=== PATIENT | male | born 1960 | race Caucasian/White ===

== ENCOUNTER 2017-12-07 22:07 | Inpatient (IN) ==
[2017-12-07] MEDS ORDERED: Nitroglycerin Drip Premix 50 MG/250 ML BOTTLE IV.CONT PRN (22:32)
[2017-12-07] MEDS ORDERED: Heparin 10,000 UNITS/10 ML Vial (for IV use) IV.PUSH STA (22:32)
[2017-12-07] MEDS ORDERED: Morphine Inj 4 MG/ML Vial IV.PUSH ONE ×2 (22:39→23:36)
[2017-12-07] MEDS ORDERED: Sod Chloride 0.9% Inj 1,000 ML IV.SIG SCH (22:45)
--- NOTE | 2017-12-07 22:45 | ED ---
HPI General Chief Complaint: Chest Pain Stated Complaint: chest pain Time Seen by Provider: 12/07/17 22:39 Source: patient Mode of arrival: ambulatory Limitations: no limitations History of Present Illness MD complaint: Reports chest pain STEMI Alert: Yes Onset (ago): hour(s) (2) Time: 08:30 Duration: constant Onset: during rest Pain location: Reports substernal Severity: severe Severity scale (1-10): 10 Quality: Reports tightness Pain radiation: Reports jaw/teeth Relieving factors: nothing Exacerbating factors: nothing Context: Reports other (History of tobacco abuse) Associated symptoms: Denies nausea, diaphoresis, syncope, fever, cough and leg swelling Treatments prior to arrival chest pain: Reports none Related Data Home Medications Medication Instructions Recorded Confirmed No Known Home Medications 12/07/17 12/07/17 Previous Rx's Medication Instructions Recorded aspirin 81 mg PO DAILY #30 tab 12/09/17 atorvastatin 80 mg PO DAILY #30 tab 12/09/17 carvedilol [Coreg] 3.125 mg PO BID #60 tab 12/09/17 ticagrelor [Brilinta] 90 mg PO BID #60 tab 12/09/17 Allergies Allergy/AdvReac Type Severity Reaction Status Date / Time Penicillins Allergy Hives Verified 12/07/17 22:15 Review of Systems ROS: all other systems reviewed are negative [facility] Medical History Medical History Patient denies medical problems (Acute) Family History Family History Father Heart disease Mother Healthy female adult Social History Social History Substance History: No History of Abuse Second Hand Smoke Exposure: Yes Smoking Status: Current every day smoker Tobacco Type: Cigarettes How Often Do You Have a Drink Containing Alcohol: 2 to 3 times a week Recent Travel in [facility] within the Last 8 Weeks: Yes Recent Out of Country Travel within the Last 8 Weeks: No Immunization History Tetanus Immunization: Unsure Exam Const General: cooperative and healthy appearing Orientation: alert, awake and oriented x3 HENMT Head: normal to inspection, normocephalic and atraumatic Eyes General: appearance normal, both eyes and all related structures Conjunctivae: conjunctivae normal Sclera: sclerae normal EOM: EOM intact bilaterally Neck Neck: normal visual inspection and full ROM Chest Chest: normal inspection of the chest Resp Effort & Inspection: normal respiratory effort and able to speak in complete sentences Auscultation: clear to auscultation bilaterally Cardio Rate: regular rate Rhythm: regular rhythm Heart Sounds: S1 normal and S2 normal GI Inspection: normal to inspection Palpation: soft Back/Spine/Pelvis Cervical Spine: cervical ROM normal Thoracic/Lumbar Spine: thoraco-lumbar ROM normal Skin General: no rashes or lesions noted, turgor normal and dry skin Neuro General: alert, awake, oriented x3, moves all extremities and CN's II-XI intact bilaterally Extrem General: normal to inspection, full ROM and no pedal edema Psych Appearance: grossly normal Mental Status: mental status grossly normal Speech and Movement: speech and movement normal Mood: anxious mood Affect: anxious affect Attitude: cooperative Thought Process: normal Thought Content: normal Judgment: judgment good Course Consultations Consultation #1: Dr. Lofton has reviewed this patient's EKG. He states that it is not a STEMI. Time: 22:44 Consultation #2: Patient received during sign-out from Dr. Mejia. 57yM presenting with chest pain, found to have abnormal initial EKG with 2+ mm elevations in I and aVL, depressions in II, III, and aVF with 10/10 pain. The case was discussed with Dr. Lofton of interventional radiology, who did not feel the patient fit STEMI criteria. He was started on heparin and nitro drips prior to my arrival but still complains of 8/10 chest pain. A repeat EKG shows improvement in elevations in I and aVL/ depressions in II, III, and aVF but they are still persistently about 1 mm in the setting of continued pain. The patient's initial troponin is 0.26. I again spoke with Dr. Lofton, and as the patient has risk factors (smoking history, "diet-controlled diabetes"), family history (father with CAD in his 60s), and persistent pain despite aggressive medical management, he will bring the patient to the biology laboratory assistant for high-risk NSTEMI. Time: 23:40 Initial Documented Vital Signs Temperature 97.6 F 12/07/17 22:15 Pulse Rate 72 12/07/17 22:15 Respiratory Rate 15 12/07/17 22:15 Blood Pressure 234/102 H 12/07/17 22:15 Pulse Oximetry 100 12/07/17 22:15 Last Documented Vital Signs Temperature 98.3 F 12/09/17 08:00 Pulse Rate 60 12/09/17 12:30 Respiratory Rate 20 12/09/17 08:00 Blood Pressure 145/88 H 12/09/17 08:00 Pulse Oximetry 99 12/09/17 20:00 Critical Care Time Critical Care Time: Yes Total Critical Care Time: 30 Attestation: Time to perform other separately billable procedures was not included in the critical care time. My time did not include minutes spent treating any other patients simultaneously or on activities that did not directly contribute to the patient's treatment. The services I provided to this patient were to treat and/or prevent clinically significant deterioration due to chest pain, rule out ACS. I provided critical care services requiring my management, as noted below: Chart data review, documentation time, medication orders and management, vital sign assessments/reviewing monitor data, ordering and reviewing lab tests, ordering and interpreting/reviewing x-rays and diagnostic studies, care of the patient and discussion of the patient with the admitting physicians Medical Decision Making MDM Narrative Medical decision making narrative: This patient presents with chest pain for the last 2 hours. He states that he has been here for the last 2 weeks looking for a house. He plans to relocate here for senior living. He states that he bought a house today and was sitting in the hot tub this evening when he developed diffuse chest pain. The chest pain did not go away so he presented to us for further evaluation and treatment. Medical Screen Exam Complete: Yes Emergency Medical Condition: Yes Differential Diagnosis Differential Diagnosis: Differential diagnosis of chest pain includes but is not limited to musculoskeletal pain, pulmonary embolism, acute coronary syndrome , pneumonia, pleurisy Lab Data Result diagrams: 12/09/17 05:41 12/09/17 05:41 Lab Results 12/07/17 12/07/17 12/07/17 Range/Units 22:39 22:39 22:39 WBC 12.0 H (4.0-11.0) th/mm3 RBC 5.24 (4.50-5.90) mil/mm3 Hgb 16.4 (13.0-17.0) gm/dL POC Hgb (Calc) 16.3 (13.0-17.0) g/dL Hct 48.3 (39.0-51.0) % POC Hct 48.0 (39-51.0) % MCV 92.1 (80.0-100.0) fL MCH 31.3 (27.0-34.0) pg MCHC 34.0 (32.0-36.0) % RDW 14.4 (11.6-17.2) % Plt Count 151 (150-450) th/mm3 MPV 9.2 (7.0-11.0) fL Neut % (Auto) 75.4 H (16.0-70.0) % Lymph % (Auto) 16.5 (9.0-44.0) % [place] % (Auto) 5.7 (0.0-8.0) % Eos % (Auto) 2.1 (0.0-4.0) % Baso % (Auto) 0.3 (0.0-2.0) % Neut # (Auto) 9.1 H (1.8-7.7) th/mm3 Lymph # (Auto) 2.0 (1.0-4.8) th/mm3 [place] # (Auto) 0.7 (0.0-0.9) th/mm3 Eos # (Auto) 0.2 (0.0-0.4) th/mm3 Baso # (Auto) 0.0 (0.0-0.2) th/mm3 WBC Differential . Differential Comment Auto diff final PT 10.0 (9.8-11.6) sec INR 1.0 Ratio APTT 29.7 (24.3-30.1) sec POC Sodium 136 L (137-144) mmol/L Sodium (136-145) meq/L POC Potassium 3.5 L (3.6-5.0) mmol/L Potassium (3.5-5.1) meq/L POC Chloride 99 L (102-111) mmol/L Chloride (98-107) meq/L Carbon Dioxide (21.0-32.0) meq/L Anion Gap (5-15) meq/L POC BUN 11 (5-21) mg/dL BUN (7-18) mg/dL Creatinine (0.60-1.30) mg/dL POC Creatinine 1.0 (0.6-1.3) mg/dL Estimated GFR (>89) mL/min POC Glucose 111 H (68-110) mg/dL Random Glucose (74-106) mg/dL Hemoglobin A1c (4.3-6.0) % Calcium 8.3 L (8.5-10.1) mg/dL Prot Corrected Calcium (8.5-10.1) mg/dL Magnesium 1.9 (1.5-2.5) mg/dL Total Bilirubin (0.2-1.0) mg/dL AST (15-37) U/L ALT (12-78) U/L Alkaline Phosphatase (45-117) U/L Total Creatine Kinase 95 (39-308) U/L Troponin I 0.28 H (0.02-0.05) ng/mL B-Natriuretic Peptide (0-100) pg/mL Total Protein (6.4-8.2) g/dL Albumin (3.4-5.0) g/dL Triglycerides (42-150) mg/dL Cholesterol (120-200) mg/dL LDL Cholesterol, Calc (0-99) mg/dL HDL Cholesterol (40.0-60.0) mg/dL Cholesterol/HDL Ratio Ratio 12/07/17 12/08/17 12/08/17 Range/Units 22:39 05:45 05:45 WBC (4.0-11.0) th/mm3 RBC (4.50-5.90) mil/mm3 Hgb (13.0-17.0) gm/dL POC Hgb (Calc) (13.0-17.0) g/dL Hct (39.0-51.0) % POC Hct (39-51.0) % MCV (80.0-100.0) fL MCH (27.0-34.0) pg MCHC (32.0-36.0) % RDW (11.6-17.2) % Plt Count (150-450) th/mm3 MPV (7.0-11.0) fL Neut % (Auto) (16.0-70.0) % Lymph % (Auto) (9.0-44.0) % [place] % (Auto) (0.0-8.0) % Eos % (Auto) (0.0-4.0) % Baso % (Auto) (0.0-2.0) % Neut # (Auto) (1.8-7.7) th/mm3 Lymph # (Auto) (1.0-4.8) th/mm3 [place] # (Auto) (0.0-0.9) th/mm3 Eos # (Auto) (0.0-0.4) th/mm3 Baso # (Auto) (0.0-0.2) th/mm3 WBC Differential Differential Comment PT (9.8-11.6) sec INR Ratio APTT (24.3-30.1) sec POC Sodium (137-144) mmol/L Sodium 142 (136-145) meq/L POC Potassium (3.6-5.0) mmol/L Potassium 3.7 (3.5-5.1) meq/L POC Chloride (102-111) mmol/L Chloride 110 H (98-107) meq/L Carbon Dioxide 23.2 (21.0-32.0) meq/L Anion Gap 9 (5-15) meq/L POC BUN (5-21) mg/dL BUN 9 (7-18) mg/dL Creatinine 0.58 L (0.60-1.30) mg/dL POC Creatinine (0.6-1.3) mg/dL Estimated GFR Greater than 89 (>89) mL/min POC Glucose (68-110) mg/dL Random Glucose 104 (74-106) mg/dL Hemoglobin A1c 5.7 (4.3-6.0) % Calcium 7.4 L* D (8.5-10.1) mg/dL Prot Corrected Calcium 7.9 L (8.5-10.1) mg/dL Magnesium (1.5-2.5) mg/dL Total Bilirubin (0.2-1.0) mg/dL AST (15-37) U/L ALT (12-78) U/L Alkaline Phosphatase (45-117) U/L Total Creatine Kinase (39-308) U/L Troponin I Greater than 40.00 H* (0.02-0.05) ng/mL B-Natriuretic Peptide 24 (0-100) pg/mL Total Protein 6.2 L (6.4-8.2) g/dL Albumin (3.4-5.0) g/dL Triglycerides 184 H (42-150) mg/dL Cholesterol 174 (120-200) mg/dL LDL Cholesterol, Calc 92 (0-99) mg/dL HDL Cholesterol 44.8 (40.0-60.0) mg/dL Cholesterol/HDL Ratio 3.88 Ratio 12/08/17 12/08/17 12/08/17 Range/Units 05:45 07:49 12:54 WBC 11.2 H (4.0-11.0) th/mm3 RBC 4.71 (4.50-5.90) mil/mm3 Hgb 14.8 (13.0-17.0) gm/dL POC Hgb (Calc) (13.0-17.0) g/dL Hct 43.7 (39.0-51.0) % POC Hct (39-51.0) % MCV 92.8 (80.0-100.0) fL MCH 31.3 (27.0-34.0) pg MCHC 33.7 (32.0-36.0) % RDW 14.3 (11.6-17.2) % Plt Count 131 L (150-450) th/mm3 MPV 9.5 (7.0-11.0) fL Neut % (Auto) 82.1 H (16.0-70.0) % Lymph % (Auto) 11.7 (9.0-44.0) % [place] % (Auto) 5.2 (0.0-8.0) % Eos % (Auto) 0.8 (0.0-4.0) % Baso % (Auto) 0.2 (0.0-2.0) % Neut # (Auto) 9.2 H (1.8-7.7) th/mm3 Lymph # (Auto) 1.3 (1.0-4.8) th/mm3 [place] # (Auto) 0.6 (0.0-0.9) th/mm3 Eos # (Auto) 0.1 (0.0-0.4) th/mm3 Baso # (Auto) 0.0 (0.0-0.2) th/mm3 WBC Differential . Differential Comment Auto diff final PT (9.8-11.6) sec INR Ratio APTT (24.3-30.1) sec POC Sodium (137-144) mmol/L Sodium (136-145) meq/L POC Potassium (3.6-5.0) mmol/L Potassium (3.5-5.1) meq/L POC Chloride (102-111) mmol/L Chloride (98-107) meq/L Carbon Dioxide (21.0-32.0) meq/L Anion Gap (5-15) meq/L POC BUN (5-21) mg/dL BUN (7-18) mg/dL Creatinine (0.60-1.30) mg/dL POC Creatinine (0.6-1.3) mg/dL Estimated GFR (>89) mL/min POC Glucose 113 H 188 H (68-110) mg/dL Random Glucose (74-106) mg/dL Hemoglobin A1c (4.3-6.0) % Calcium (8.5-10.1) mg/dL Prot Corrected Calcium (8.5-10.1) mg/dL Magnesium (1.5-2.5) mg/dL Total Bilirubin (0.2-1.0) mg/dL AST (15-37) U/L ALT (12-78) U/L Alkaline Phosphatase (45-117) U/L Total Creatine Kinase (39-308) U/L Troponin I (0.02-0.05) ng/mL B-Natriuretic Peptide (0-100) pg/mL Total Protein (6.4-8.2) g/dL Albumin (3.4-5.0) g/dL Triglycerides (42-150) mg/dL Cholesterol (120-200) mg/dL LDL Cholesterol, Calc (0-99) mg/dL HDL Cholesterol (40.0-60.0) mg/dL Cholesterol/HDL Ratio Ratio 12/08/17 12/08/17 12/09/17 Range/Units 17:10 20:25 05:41 WBC 9.4 (4.0-11.0) th/mm3 RBC 4.86 (4.50-5.90) mil/mm3 Hgb 15.5 (13.0-17.0) gm/dL POC Hgb (Calc) (13.0-17.0) g/dL Hct 45.2 (39.0-51.0) % POC Hct (39-51.0) % MCV 93.0 (80.0-100.0) fL MCH 31.9 (27.0-34.0) pg MCHC 34.3 (32.0-36.0) % RDW 14.3 (11.6-17.2) % Plt Count 142 L (150-450) th/mm3 MPV 9.6 (7.0-11.0) fL Neut % (Auto) 74.1 H (16.0-70.0) % Lymph % (Auto) 17.0 (9.0-44.0) % [place] % (Auto) 6.6 (0.0-8.0) % Eos % (Auto) 2.0 (0.0-4.0) % Baso % (Auto) 0.3 (0.0-2.0) % Neut # (Auto) 7.0 (1.8-7.7) th/mm3 Lymph # (Auto) 1.6 (1.0-4.8) th/mm3 [place] # (Auto) 0.6 (0.0-0.9) th/mm3 Eos # (Auto) 0.2 (0.0-0.4) th/mm3 Baso # (Auto) 0.0 (0.0-0.2) th/mm3 WBC Differential . Differential Comment Auto diff final PT (9.8-11.6) sec INR Ratio APTT (24.3-30.1) sec POC Sodium (137-144) mmol/L Sodium (136-145) meq/L POC Potassium (3.6-5.0) mmol/L Potassium (3.5-5.1) meq/L POC Chloride (102-111) mmol/L Chloride (98-107) meq/L Carbon Dioxide (21.0-32.0) meq/L Anion Gap (5-15) meq/L POC BUN (5-21) mg/dL BUN (7-18) mg/dL Creatinine (0.60-1.30) mg/dL POC Creatinine (0.6-1.3) mg/dL Estimated GFR (>89) mL/min POC Glucose 121 H 136 H (68-110) mg/dL Random Glucose (74-106) mg/dL Hemoglobin A1c (4.3-6.0) % Calcium (8.5-10.1) mg/dL Prot Corrected Calcium (8.5-10.1) mg/dL Magnesium (1.5-2.5) mg/dL Total Bilirubin (0.2-1.0) mg/dL AST (15-37) U/L ALT (12-78) U/L Alkaline Phosphatase (45-117) U/L Total Creatine Kinase (39-308) U/L Troponin I (0.02-0.05) ng/mL B-Natriuretic Peptide (0-100) pg/mL Total Protein (6.4-8.2) g/dL Albumin (3.4-5.0) g/dL Triglycerides (42-150) mg/dL Cholesterol (120-200) mg/dL LDL Cholesterol, Calc (0-99) mg/dL HDL Cholesterol (40.0-60.0) mg/dL Cholesterol/HDL Ratio Ratio 12/09/17 12/09/17 Range/Units 05:41 07:20 WBC (4.0-11.0) th/mm3 RBC (4.50-5.90) mil/mm3 Hgb (13.0-17.0) gm/dL POC Hgb (Calc) (13.0-17.0) g/dL Hct (39.0-51.0) % POC Hct (39-51.0) % MCV (80.0-100.0) fL MCH (27.0-34.0) pg MCHC (32.0-36.0) % RDW (11.6-17.2) % Plt Count (150-450) th/mm3 MPV (7.0-11.0) fL Neut % (Auto) (16.0-70.0) % Lymph % (Auto) (9.0-44.0) % [place] % (Auto) (0.0-8.0) % Eos % (Auto) (0.0-4.0) % Baso % (Auto) (0.0-2.0) % Neut # (Auto) (1.8-7.7) th/mm3 Lymph # (Auto) (1.0-4.8) th/mm3 [place] # (Auto) (0.0-0.9) th/mm3 Eos # (Auto) (0.0-0.4) th/mm3 Baso # (Auto) (0.0-0.2) th/mm3 WBC Differential Differential Comment PT (9.8-11.6) sec INR Ratio APTT (24.3-30.1) sec POC Sodium (137-144) mmol/L Sodium 142 (136-145) meq/L POC Potassium (3.6-5.0) mmol/L Potassium 3.7 (3.5-5.1) meq/L POC Chloride (102-111) mmol/L Chloride 109 H (98-107) meq/L Carbon Dioxide 25.1 (21.0-32.0) meq/L Anion Gap 8 (5-15) meq/L POC BUN (5-21) mg/dL BUN 9 (7-18) mg/dL Creatinine 0.70 (0.60-1.30) mg/dL POC Creatinine (0.6-1.3) mg/dL Estimated GFR Greater than 89 (>89) mL/min POC Glucose 129 H (68-110) mg/dL Random Glucose 118 H (74-106) mg/dL Hemoglobin A1c (4.3-6.0) % Calcium 8.1 L (8.5-10.1) mg/dL Prot Corrected Calcium (8.5-10.1) mg/dL Magnesium (1.5-2.5) mg/dL Total Bilirubin 1.1 H (0.2-1.0) mg/dL AST 120 H (15-37) U/L ALT 61 (12-78) U/L Alkaline Phosphatase 64 (45-117) U/L Total Creatine Kinase (39-308) U/L Troponin I (0.02-0.05) ng/mL B-Natriuretic Peptide (0-100) pg/mL Total Protein 6.7 (6.4-8.2) g/dL Albumin 3.6 (3.4-5.0) g/dL Triglycerides (42-150) mg/dL Cholesterol (120-200) mg/dL LDL Cholesterol, Calc (0-99) mg/dL HDL Cholesterol (40.0-60.0) mg/dL Cholesterol/HDL Ratio Ratio Imaging Data Radiologist's impression: Chest X-Ray 12/07/17 22:32 CONCLUSION: Minimal basilar atelectasis. No focal infiltrate or effusion. ECG Data EKG Prior to Arrival: No Attestation: I personally reviewed and interpreted this ECG as follows: (EKG shows a sinus rhythm with a rate of 73. He has ST segment elevation in 1 and aVL. He has ST segment depression in 2, 3 and aVF.) Prior ECG tracings: not available for review Discharge Plan Discharge Disposition Patient Disposition: 30 Still Patient Discharge Condition Condition: Good Discharge Order Discharge Orders: Discharge Order (Routine); Ordered 12/09/17 Ordered By: Sharon Dominguez Discharge Details Diagnosis: ACS (acute coronary syndrome) Physicians Team ED Provider: Megan Cosby Primary Care Provider: UNKNOWN, Attending Provider: Sharon Dominguez Status ED Status: Left Department Discharge Information Discharge Date/Time: 12/08/17 01:29
--- NOTE | 2017-12-07 22:56 | XR ---
EXAM DATE: 12/07/2017 10:53 PM EDT AGE/SEX: 57 years / Male INDICATIONS: Chest pain CLINICAL DATA: This is the patient's initial encounter. Patient reports that signs and symptoms have been present for 1 day and indicates a pain score of Nonresponsive. MEDICAL/SURGICAL HISTORY: Non-responsive. Non-responsive. COMPARISON: No prior exams available for comparison. FINDINGS: A single AP view of the chest demonstrates the lungs to be symmetrically aerated without evidence of mass, infiltrate or effusion. Minimal basilar atelectasis. The cardiomediastinal contours are unremar kable. Osseous structures are intact. CONCLUSION: Minimal basilar atelectasis. No focal infiltrate or effusion. Electronically signed by: Cameron Kang MD 12/07/2017 10:54 PM EDT
[2017-12-07 22:59] LABS: Baso % (Auto) 0.3 % (0.0-2.0); Eos # (Auto) 0.2 th/mm3 (0.0-0.4); Eos % (Auto) 2.1 % (0.0-4.0); Hematocrit 48.3 % (39.0-51.0); Hemoglobin 16.4 gm/dL (13.0-17.0); Lymph % (Auto) 16.5 % (9.0-44.0); Mean Corpuscular Hemoglobin 31.3 pg (27.0-34.0); Mean Corpuscular Volume 92.1 fL (80.0-100.0); Mean Platelet Volume 9.2 fL (7.0-11.0); Mono # (Auto) 0.7 th/mm3 (0.0-0.9); Mono % (Auto) 5.7 % (0.0-8.0); Neut # (Auto) 9.1 th/mm3 (1.8-7.7); Neut % (Auto) 75.4 % (16.0-70.0); Platelet Count 151 th/mm3 (150-450); Red Blood Count 5.24 mil/mm3 (4.50-5.90); Red Cell Distribution Width 14.4 % (11.6-17.2)
[2017-12-07 23:19] LABS: Calcium 8.3 mg/dL (8.5-10.1); Magnesium 1.9 mg/dL (1.5-2.5)
[2017-12-07 23:22] LABS: Troponin I 0.28 ng/mL (0.02-0.05)
[2017-12-07 23:40] LABS: Activated Partial Thrombo Time 29.7 sec (24.3-30.1)
[2017-12-08] MEDS ORDERED: Bisacodyl 10 MG Supp RECTAL PRN (00:30)
[2017-12-08] MEDS ORDERED: Heparin/NS PF Inj 1,500 ML ONE (01:03)
[2017-12-08] MEDS ORDERED: fentaNYL Citrate Inj 100 MCG/2 ML Ampul ONE (01:07)
[2017-12-08] MEDS ORDERED: Heparin 10,000 UNITS/10 ML Vial (for IV use) ONE (01:10)
[2017-12-08] MEDS ORDERED: Dextrose 50% in Water 50 ML Vial IV.PUSH PRN (01:55)
--- NOTE | 2017-12-08 01:56 | P.HPIM ---
History of Present Illness Primary Care Physician: UNKNOWN History of Present Illness: 57-year-old male with a history of prediabetes, diet controlled, [id number]-[id number] history of smoking, who presents with acute onset of progressively worsening dull chest pain radiating to jaw, as well as left arm around 4 PM. Patient denies any shortness of breath, nausea, vomiting, lightheadedness, dizziness. Chest pain has persisted despite nitroglycerin. Patient does report history of vague left-sided chest pain upon exertion, however cannot say with certainty how long this has been going on. Inpatient Certification: I certify that the inpatient services were ordered in accordance with Medicare regulations governing the order. This includes certification that hospital inpatient services are reasonable and necessary and in the case of services not specified as inpatient-only under 42 CFR 419.22(n), that they are appropriately provided as inpatient services in accordance to with the 2-midnight benchmark under 43 CFR 412.3(e) Estimated Total Length of Stay (Days): 2 Plans for Post Hospital Care: Home Review of Systems All other systems reviewed negative except as stated in HPI PMFSH - History History Provided By: Patient - Medical History Medical History: Medical History (Last Reviewed 12/08/17 @ 01:51 by Jacob Huynh MD) Patient denies medical problems - Surgical History Surgical History: Surgical History (Last Reviewed 12/08/17 @ 01:51 by Jacob Huynh MD) History of carpal tunnel surgery No history of previous surgery - Family History Family History: Family History (Last Updated 12/08/17 @ 01:51 by Jacob Huynh MD) Father Heart disease Mother Healthy female adult - Tobacco History Tobacco Use In Past 30 Days: Yes Smoking Status: Current every day smoker Tobacco Type: Cigarettes - Alcohol History How Often Do You Have a Drink Containing Alcohol: Never - Substance Use History Substance History: No History of Abuse - Travel History Recent Travel in the [place] Within the Last 8 Weeks: No Recent Travel Out of the Country Within the Last 8 Weeks: No - Immunization History Tetanus Immunization: Unsure Medications and Allergies Active Medications: Active Medications Al Hydroxide/Mg Hydroxide (Milk Of Magnesia Liq) 30 ml PO Q12H PRN PRN Reason: Mild Constipation Bisacodyl (Dulcolax Supp) 10 mg RECTAL DAILY PRN PRN Reason: SEVERE CONSITIPATION Nitroglycerin/Dextrose (Nitroglycerin Drip Premix) 50 mg in 250 mls @ 0 mls/hr IV.CONT TITRATE PRN; Protocol PRN Reason: Per Protocol Last Titration: 12/07/17 23:04 Dose: 15 mcg/min, 4.5 mls/hr Sodium Chloride (Ns Inj) 1,000 mls @ 30 mls/hr IV.SIG .Q24H SOURAV Stop: 12/08/17 22:44 Last Admin: 12/07/17 22:39 Dose: 30 mls/hr Lactulose (Lactulose Liq) 30 ml PO DAILY PRN PRN Reason: SEVERE CONSITIPATION Sennosides (Senokot) 17.2 mg PO Q12H PRN PRN Reason: Moderate Constipation Sodium Chloride (Ns Flush) 2 ml IV.FLUSH PRN PRN PRN Reason: FLUSH AFTER USING IV ACCESS Allergies Allergy/AdvReac Type Severity Reaction Status Date / Time Penicillins Allergy Hives Verified 12/07/17 22:15 Home Medications Medication Instructions Recorded Confirmed Type No Known Home Medications 12/07/17 12/07/17 History Exam Vital signs: Vital Signs 12/07/17 22:15 12/07/17 22:17 12/07/17 22:40 Temperature 97.6 F 98 F Pulse Rate 72 94 H Respiratory Rate 15 18 Blood Pressure 234/102 H 234/111 H Pulse Oximetry 100 100 100 12/07/17 22:52 12/07/17 23:00 12/07/17 23:01 Temperature Pulse Rate 82 75 Respiratory Rate 18 20 18 Blood Pressure 203/98 H 175/92 H Pulse Oximetry 97 100 12/07/17 23:08 12/07/17 23:11 12/07/17 23:35 Temperature Pulse Rate 65 65 Respiratory Rate 18 18 18 Blood Pressure 158/62 H 146/78 H Pulse Oximetry 100 100 12/08/17 01:28 Temperature Pulse Rate 65 Respiratory Rate 16 Blood Pressure 124/70 Pulse Oximetry Intake & Output 12/07/17 12/07/17 12/08/17 06:59 18:59 06:59 Weight 66.075 kg Narrative: GENERAL: Patient sitting up in bed. Appears uncomfortable. Alert and oriented x3. SKIN: Warm and dry. HEAD: Atraumatic. Normocephalic. EYES: Pupils equal and round. No scleral icterus. No injection or drainage. ENT: No nasal bleeding or discharge. Mucous membranes pink and moist. NECK: Trachea midline. No JVD. CARDIOVASCULAR: Regular rate and rhythm. RESPIRATORY: No accessory muscle use. Clear to auscultation. Breath sounds equal bilaterally. GASTROINTESTINAL: Abdomen soft, non-tender, nondistended. Hepatic and splenic margins not palpable. MUSCULOSKELETAL: Extremities without clubbing, cyanosis, or edema. No obvious deformities. NEUROLOGICAL: Awake and alert. No obvious cranial nerve deficits. Motor grossly within normal limits. Five out of 5 muscle strength in the arms and legs. Normal speech. PSYCHIATRIC: Appropriate mood and affect; insight and judgment normal. Results - Labs CBC & Chem 7: 12/07/17 22:39 Labs: Short CBC 12/07/17 Range/Units 22:39 WBC 12.0 H (4.0-11.0) th/mm3 Hgb 16.4 (13.0-17.0) gm/dL Hct 48.3 (39.0-51.0) % Plt Count 151 (150-450) th/mm3 BMP 12/07/17 22:39 Calcium 8.3 L Cardiac Enzymes 12/07/17 Range/Units 22:39 Total Creatine Kinase 95 (39-308) U/L Troponin I 0.28 H (0.02-0.05) ng/mL - Imaging Impressions Chest X-Ray 12/07/17 22:32 CONCLUSION: Minimal basilar atelectasis. No focal infiltrate or effusion. Caprini VTE Risk Assessment Caprini VTE Risk Assessment: No/Low Risk (score <= 1) Caprini Risk Assessment Model: Point Value = 1 Point Value = 2 Point Value = 3 Point Value = 5 Age 41-60 Minor surgery BMI > 25 kg/m2 Swollen legs Varicose veins or History of unexplained or recurrent spontaneous Oral contraceptives or hormone replacement Sepsis (< 1 month) Serious lung disease, including pneumonia (< 1 month) Abnormal pulmonary function Acute myocardial infarction Congestive heart failure (< 1 month) History of inflammatory bowel disease Medical patient at bed rest Age 61-74 Arthroscopic surgery Major open surgery (> 45 min) Laparoscopic surgery (> 45 min) Malignancy Confined to bed (> 72 hours) Immobilizing plaster cast Central venous access Age >= 75 History of VTE Family history of VTE Factor V Leiden Prothrombin [id number] Lupus anticoagulant Anticardiolipin antibodies Elevated serum homocysteine Heparin-induced thrombocytopenia Other congenital or acquired thrombophilia Stroke (< 1 month) Elective arthroplasty Hip, pelvis, or leg fracture Acute spinal cord injury (< 1 month) Prophylaxis Regimen: Total Risk Factor Score Risk Level Prophylaxis Regimen 0-1 Low Early ambulation 2 Moderate Order ONE of the following: *Sequential Compression Device (SCD) *Heparin 5000 units SQ BID 3-4 Higher Order ONE of the following medications: *Heparin 5000 units SQ TID *Enoxaparin/Lovenox 40 mg SQ daily (WT < 150 kg, CrCl > 30 mL/min) *Enoxaparin/Lovenox 30 mg SQ daily (WT < 150 kg, CrCl > 10-29 mL/min) *Enoxaparin/Lovenox 30 mg SQ BID (WT < 150 kg, CrCl > 30 mL/min) AND/OR *Sequential Compression Device (SCD) 5 or more Highest Order ONE of the following medications: *Heparin 5000 units SQ TID (Preferred with Epidurals) *Enoxaparin/Lovenox 40 mg SQ daily (WT < 150 kg, CrCl > 30 mL/min) *Enoxaparin/Lovenox 30 mg SQ daily (WT < 150 kg, CrCl > 10-29 mL/min) *Enoxaparin/Lovenox 30 mg SQ BID (WT < 150 kg, CrCl > 30 mL/min) AND *Sequential Compression Device (SCD) Assessment and Plan - Plan //Acute non-ST elevation IN -EKG with 2 mm elevations in 1, aVL, ST depressions in the lateral leads. = We will order A1c and lipid profile. = Pain has persisted despite nitroglycerin and heparin. Patient will continue on heparin drip. As per ER discussion with cardiology patient is to undergo cardiac catheterization. Appreciate cardiology assistance. //Tobacco abuse With 55-hbcj-tyhm smoking history. Cessation counseling provided. //Diet controlled prediabetes. Will order A1c. Will order insulin sliding scale for now, however this may be canceled if remains without significant hypoglycemia. //Leukocytosis. White blood cell count 12. Likely secondary to stress. No signs of infection. Monitor Discussed Condition With: Patient, nurse, ED physician.
[2017-12-08] MEDS ORDERED: Cangrelor Inj 50,000 MCG Vial ONE (02:15)
--- NOTE | 2017-12-08 02:35 | CATHPROC ---
[facility] [employer] [facility] Report Study Information Study Number Admission Scheduled Start Study Start [id number] Dec 08 2017 12:21AM 12/08/2017 Dec 08 2017 1:06AM [place] [facility] Cardiac Catheterization Admit Source Facility Department Emergency department [facility] - [facility] Physician and Clinical Staff Initial Noah Dumont Felt Hooker Sincere Scott RN Felt Hooker Heather Duron,EVANS Recorder Sina Bates,RT(R) Scrub Duke Cloud RCIS(BS) Procedures Performed Procedure Location (Site) Vessel Name Coronary Angiograms LCA Left Coronary Coronary Angiograms RCA Right Coronary Drug Eluting Inflatio RAMUS Prox CIRC L Heart Cath PTCA RAMUS Prox CIRC Wire insertion Radial (right) Radial Art. Equipment Time Fiber Machine Tender Description Size Mfg Part Number Used/Scraped TRANSDUCER, MALDONADO [id number] 01:07 RODRIGUEZ LUCAS * Used W/[employer] *[id number] 01:07 [facility] SUPPORT, ARTERIAL ADULT [id number] Used SDN-21-2.5 01:07 [employer] NEEDLE, PERCUTANEOUS ENTRY 21G X 2.5CM Used *[id number] *[id number] 01:07 [employer] BLANKET,WARM AIR CCL * Used *[id number] 01:07 [employer] PACK, CCL CUSTOM * Used *[id number] 02:05 [employer] BALLOON, 2.0 X 12MM EUPHORA 12MM Used *[id number] 01:31 [employer] JL 3.5 DXTERITY CATHETER FR 6 [id number] Used 01:31 [employer] JL 4.0 DXTERITY CATHETER FR 6 [id number] Used 01:33 [employer] JR 4.0 DXTERITY CATHETER FR 6 [id number] Used [id number] 02:09 [employer] STENT, 2.0 15MM EDMUND 2.0 X 15MM Used *[id number] 02:06 [employer] MEDICAL 30 LEW INDEFLATOR Used *[id number] BAND, RADIAL COMPRESSION TR [id number] 02:18 [employer] MEDICAL 24CM Used SHORT 24 *[id number] 01:08 [employer] SHEATH, FR6 PRELUDE IDEAL FR 5/6 Used *[id number] 01:07 [employer] WIRE, EXCHANGE 260CM 3MMJ 260CM Used *[id number] 01:07 [employer] MANIFOLD, 4 PORT * Used *[id number] 01:07 [employer] OMNIPAQUE, 350 MG, 150ML 150ML [id number] Used WIRE, RUNTHROUGH NS FLOPPY 02:02 [employer] 180CM Used .014 180CM *[id number] Equipment Model, Serial, Lot Number and Expiration Data Description Model Number Serial Number Lot Number Expiration Date JL 3.5 DXTERITY CATHETER [id number] 08-27-2020 JL 4.0 DXTERITY CATHETER [id number] 08-13-2020 JR 4.0 DXTERITY CATHETER [id number] 09-03-2020 STENT, 2.0 15MM EDMUND [id number] 05-13-2019 History: Allergies Allergy Reaction Penicillins Hives History: Risk Factors Family History of Hypertension Dyslipidemia Previous NC Previous Heart Failure Premature CAD No No Yes No No Prior Valve Prior PCI Prior CABG Surgery No No No Cerebrovascular Peripheral Artery Chronic Lung On Dialysis Diabetes Diabetes Therapy Disease Disease Disease No No No No Yes Diet History: Other Current Smoker Method Packs a Day Years Used Pack Years Yes Cigarettes 1 40 40 Labs Hgb (g/dl) Hct (%) WBC (l/cumm) Platelets (thousands) 11.60-17.00 35.00-51.00 4.00-11.00 150.00-450.00 16.4 48.3 12 151 Glucose (mg/dl) BUN (mg/dl) Creatinine (mg/dl) BUN:Creatinine (1:x) 74.00-106.00 7.00-18.00 0.50-1.30 10.00-20.00 111 11 1.0 11 Na (meq/l) K (meq/l) 136.00-145.00 3.50-5.10 136 3.5 INR (PTT:PT) 0.90-1.10 1 Troponin I (ng/ml) CPK-MB (ng/ML) 0.02-0.05 0.50-3.60 0.028 Not Drawn Medication Medication Total Dose (Bolus/Oral) Medication Total Dosage/Unit 1% XYLOCAINE 5 mL BRILINTA 180 mg FENTANYL 50 mcg HEPARIN 5000 units NTG (IC) 400 mcg VERSED 2 mg Medications (Bolus/Oral) Medication Time Given Dosage/Unit Administered By Reason 1% XYLOCAINE 12/08/2017 1:50:33 AM 5 mL Noah Lofton 5 mL 1% XYLOCAINE given in lab by Noah Lofton in Right Radial via Subcutaneous. Ordered by Oneil Lofton. VERSED 12/08/2017 1:50:59 AM 2 mg Sincere Scott 2 mg VERSED given in lab by Sincere Scott RN in Left Antecubital via Peripheral IV. Ordered by Noah Lofton. FENTANYL 12/08/2017 1:51:13 AM 50 mcg Sincere Scott 50 mcg FENTANYL given in lab by Sincere Scott RN via Peripheral IV. Ordered by Noah Lofton. NTG (IC) 12/08/2017 1:52:12 AM 200 mcg Noah Lofton 200 mcg NTG (IC) given in lab by Noah Lofton in Right Wrist via Intra-arterial. Ordered by Oneil Lofton. HEPARIN 12/08/2017 1:57:27 AM 5000 units Sincere Scott 5000 units HEPARIN given in lab by Sincere Scott RN in Left Antecubital via Peripheral IV. Ordered by Noah Lofton. NTG (IC) 12/08/2017 2:13:07 AM 200 mcg Noah Lofton 200 mcg NTG (IC) given in lab by Noah Lofton via Intra-coronary. Ordered by Noah Lofton. BRILINTA 12/08/2017 2:24:29 AM 180 mg Heather Duron 180 mg BRILINTA given in lab by Heather Duron RN via Oral. Medication (Drip) Medication Time Given Dosage/Unit Concentration/Unit Diluent (ml) Solutio n IV Solutions 12/08/2017 1:14:38 AM 0 mL (IV) 500 NaCl .9 IV Solutions given in lab by Noah Lofton in Left Antecubital via Peripheral IV. Pump/Drip Flow = 20 ml/hr using NaCl .9. Ordered by Noah Lofton. KENGREAL BOLUS 12/08/2017 2:25:58 AM 10 mL 10 mL KENGREAL BOLUS given in lab by Sincere Scott RN in Left Antecubital via Peripheral IV. Ordered by Noah Lofton. KENGREAL DRIP 12/08/2017 2:26:29 AM 4.005 mcg/kg/min 50 mg 250 NaCl .9 4.005 mcg/kg/min KENGREAL DRIP given in lab by Sincere Scott RN in Left Antecubital via Peripheral IV . Pump/Drip Flow = 79.3 ml/hr using NaCl .9 with a concentration of 50 mg in 250 ml. Ordered by Noah Lofton. NITROGLYCERIN DRIP 12/08/2017 1:14:38 AM 15 mcg/min 50 mg 250 D5W Patient arrived on 15 mcg/min NITROGLYCERIN DRIP given by Noah Lofton in Left Antecubital via Periph eral IV. Pump/Drip Flow = 4.5 ml/hr using D5W with a concentration of 50 mg in 250 ml. Ordered by Noah Lofton. NITROGLYCERIN DRIP 12/08/2017 2:15:16 AM 5 mcg/min 50 mg 250 D5W 5 mcg/min NITROGLYCERIN DRIP given in lab by Heather Duron RN via Peripheral IV. Pump/Drip Flow = 1.5 ml/hr using D5W with a concentration of 50 mg in 250 ml. Ordered by Noah Lofton. Initial Case Assessment Cardiovascular HR Rhythm NIBP Chest Pain 60 sr 132/74 2 Edema Present Skin color Skin None Normal Warm Dry Circulatory - Right Pulses Posterior Tibial Femoral Radial 3 3 3 Scale (0,1,2,3,4,d) Circulatory - Left Pulses Posterior Tibial Femoral Radial 3 3 Scale (0,1,2,3,4,d) Neurological State Oriented to time-place- Alert Moves all extremities person Respiration - General Respiration Rate SpO2 (%) O2 (lpm) (B/min) 18 96 2 Final Case Assessment Cardiovascular HR Rhythm NIBP 65 sr 114/64 Edema Present Skin color Skin None Normal Warm Dry Circulatory - Right Pulses Posterior Tibial Femoral Radial 3 3 3 Scale (0,1,2,3,4,d) Circulatory - Left Pulses Posterior Tibial Femoral Radial 3 3 3 Scale (0,1,2,3,4,d) Neurological State Oriented to time-place- Alert Moves all extremities person Respiration - General Respiration Rate SpO2 (%) O2 (lpm) (B/min) 18 99 2 Chronological Log Time Study Chronological Log 1:14:26 Patient arrived via Bed. Positive Allens test performed by Duke Cloud. 1:14: Patient Name, D.O.B, / Armband Verified By R.N. 1:: Consent signed by the physician and the patient and verified by the [facility] [employer] staff. 1:14:28 Pre-op and post- op instructions given; patient acknowledges understanding of instructions. 1:14:30 Presedation assessment performed by [facility] [employer] RN. 1:14:31 Allens test performed on the right radial and ulnar artery. 1:14:33 Patient has been NPO for More than 6Hrs. 1:14:34 Skin Breakdown- 1:14:34 Patient Warmer Placed on the Table. 1:14:35 Chandni Prominences Protected 1:14:37 A # 20 IV was noted in the Upper Arm (right). Grade = 0 1:14:38 A # 20 IV was noted in the Antecubital (left). Grade = 0 Patient arrived on 15 mcg/min NITROGLYCERIN DRIP given by Noah Lofton in Left Antecubital via Peripheral IV. 1:14:38 Pump/Drip Flow = 4.5 ml/hr using D5W with a concentration of 50 mg in 250 ml. Ordered by Noah Lofton. IV Solutions given in lab by Noah Lofton in Left Antecubital via Peripheral IV. Pump/Drip Jan w = 20 ml/hr using NaCl .9. 1:14:38 Ordered by Noah Lofton. 1:14:39 History and physical on the chart or being dictated. Vitals capture started with the following parameters, Patient=Adult, Interval=2 min, Initial P bgqlthy=555 mmHg, 1:21:35 Deflation Rate=5 mmHg, Cuff placed on Left Arm 1:22:21 HR=65 bpm, ORUB=577/74 mmhg, SpO2=95.0 %, Resp=20 B/min, Hamilton=2 1:24:16 HR=59 bpm, JFFC=631/74 mmhg, SpO2=96.0 %, Resp=13 B/min, Hamilton=2 1:25:13 MD paged 1:25:21 History and physical on the chart or being dictated. Assessment: Initial Case, HR=60 BPM, Rhythm=sr, JSJY=028/74 mmhg, Chest Pain=2, Edema=None, Rollins r=Normal, Skin = Warm, Dry Right Pulses: Post Tib=3, Femoral=3, Radial=3 1:25:23 Left Pulses: Post Tib=3, Femoral=3 Neurological: State=Alert, Ox3, YOU Respiration: Resp=18 B/min, SpO2=96 %, O2=2 lpm 1:26:15 HR=57 bpm, CLBP=772/75 mmhg, SpO2=87.0 %, Resp=21 B/min, Hamilton=2 1:26:20 Bilateral groins and right radial prepped with 2% chlorhexidine, and draped after a 3 minute waiting time. 1:28:16 HR=53 bpm, XNAN=199/78 mmhg, SpO2=97.0 %, Resp=15 B/min, Hamilton=2 1:29:35 Reference ECG taken 1:30:21 HR=53 bpm, ZRRW=470/73 mmhg, SpO2=97.0 %, Resp=15 B/min, Hamilton=2 1:32:17 HR=62 bpm, QQUN=958/75 mmhg, SpO2=96.0 %, Resp=10 B/min, Hamilton=2 1:34:16 HR=60 bpm, QPDU=898/72 mmhg, SpO2=96.0 %, Resp=12 B/min, Hamilton=2 1:36:15 HR=53 bpm, CIVK=647/75 mmhg, SpO2=96.0 %, Resp=19 B/min, Hamilton=2 1:38:55 HR=51 bpm, LPDK=585/74 mmhg, SpO2=96.0 %, Resp=18 B/min, Hamilton=2 1:40:19 HR=52 bpm, SFIU=068/75 mmhg, SpO2=96.0 %, Resp=13 B/min, Hamilton=2 1:42:18 HR=56 bpm, UOZP=799/74 mmhg, SpO2=96.0 %, Resp=16 B/min, Hamilton=2 1:44:14 HR=53 bpm, FCZN=048/75 mmhg, Resp=16 B/min, Hamilton=2 1:46:27 MD arrived. 1:46:54 HR=52 bpm, EAGR=416/75 mmhg, SpO2=95.0 %, Resp=19 B/min, Hamilton=2 1:48:59 HR=62 bpm, KYRZ=491/72 mmhg, SpO2=96.0 %, Resp=19 B/min, Hamilton=2 Time Out. Correct patient, correct procedure, correct physician, labs, allergies, and equipment verified with laborer hoisting 1:49:22 team present. Fire risk assesment completed (see hard stop sheet for coding). Time Out Concu rred by MD and individual staff in procedure. 1:49:42 Presedation re-assessment performed by [facility] RN. 1:49:43 Case Start 1:49:45 Verbal Stimulation=2 Physical Stimulation=2 Airway=2 Respiration=2 TOTAL=8. (0=absent, 1=kauffman ited, 2=present) 1:50:15 HR=79 bpm, EXET=624/77 mmhg, SpO2=96.0 %, Resp=12 B/min, Hamilton=2 1:50:33 5 mL 1% XYLOCAINE given in lab by Noah Lofton in Right Radial via Subcutaneous. Ordered by Noah Lofton. 1:50:53 Access site was Right Radial Artery . 1:50:59 2 mg VERSED given in lab by Sincere Scott RN in Left Antecubital via Peripheral IV. Ordered by Noah Lofton. 1:51:06 A SHEATH, FR6 PRELUDE IDEAL FR 5/6 was advanced into the Radial (right) using the Percutaneo us technique. 1:51:13 50 mcg FENTANYL given in lab by Sincere Scott RN via Peripheral IV. Ordered by Noah Lofton. 1:52:12 200 mcg NTG (IC) given in lab by Noah Lofton in Right Wrist via Intra-arterial. Ordered by Noah Lofton. 1:52:16 HR=77 bpm, CDKB=558/73 mmhg, Resp=18 B/min, Hamilton=2 A JR 4.0 DXTERITY CATHETER FR 6 was advanced over a wire. OMNIPAQUE, 350 MG, 150ML 150ML was use d for 1:52:57 injections. 1:54:16 HR=77 bpm, TOKP=658/71 mmhg, SpO2=91.0 %, Resp=19 B/min, Hamilton=2 1:54:16 Pressure channel 1 zeroed. Recorded Pressure: Ao, HR=76, Condition=Condition 1 1:54:29 (Aorta) Ao 116/65/88 1:54:42 The RCA was injected and visualized at various angles. OMNIPAQUE, 350 MG, 150ML 150ML used. Recorded Pressure: LV, HR=79, Condition=Condition 1 1:54:58 (Left Ventricle) LV 121/10/19 Recorded Pressure: LV, Ao, HR=66, Condition=Condition 1 1:55:12 (Left Ventricle) LV 126/8/20, (Aorta) Ao 131/60/86 1:56:15 HR=77 bpm, EBQT=304/74 mmhg, Resp=17 B/min, Hamilton=2 After removing the current catheter a JL 3.5 DXTERITY CATHETER FR 6 was advanced over a WIRE, EX CHANGE 260CM 1:57:12 3MMJ 260CM. 1:57:27 5000 units HEPARIN given in lab by Sincere Scott RN in Left Antecubital via Peripheral IV. O rdered by Noah Lofton. 1:58:16 HR=83 bpm, OHOM=983/71 mmhg, SpO2=90.0 %, Resp=17 B/min, Hamilton=2 1:58:21 The LCA was injected and visualized at various angles. OMNIPAQUE, 350 MG, 150ML 150ML used. 2:00:15 HR=82 bpm, XOGR=305/75 mmhg, SpO2=91.0 %, Resp=17 B/min, Hamilton=2 2:00:58 A WIRE, EXCHANGE 260CM 3MMJ 260CM was inserted via Radial (right). After removing the current catheter a XB 3.0 GUIDE CATHETER FR 6 was advanced over a WIRE, EXCHA NGE 260CM 2:01:12 3MMJ 260CM. 2:02:18 HR=84 bpm, COFH=745/72 mmhg, SpO2=93.0 %, Resp=17 B/min, Hamilton=2 2:03:11 A WIRE, RUNTHROUGH NS FLOPPY .014 180CM 180CM was inserted via Radial (right). 2:04:16 HR=79 bpm, WLCP=388/69 mmhg, SpO2=92.0 %, Resp=15 B/min, Hamilton=2 2:04:55 Interventional wire has crossed the lesion A BALLOON, 2.0 X 12MM EUPHORA 12MM was inserted over WIRE, RUNTHROUGH NS FLOPPY .014 180CM 180CM via 2:05:13 the RAMUS Prox. A BALLOON, 2.0 X 12MM EUPHORA 12MM over a WIRE, RUNTHROUGH NS FLOPPY .014 180CM 180CM in the FRANKLYN US 2:05:49 Prox was inflated using a 30 LEW INDEFLATOR at 12 lew for 15 sec. 2:06:17 HR=57 bpm, CUAW=601/70 mmhg, SpO2=94.0 %, Resp=17 B/min, Hamilton=2 2:08:14 Balloon Removed. 2:08:18 HR=51 bpm, ZAJA=498/72 mmhg, SpO2=93.0 %, Resp=17 B/min, Hamilton=2 A STENT, 2.0 15MM EDMUND 2.0 X 15MM was advanced through a XB 3.0 GUIDE CATHETER FR 6 over a WIRE, 2:09:14 RUNTHROUGH NS FLOPPY .014 180CM 180CM. A STENT, 2.0 15MM EDMUND 2.0 X 15MM was deployed using a 30 LEW INDEFLATOR at 13 atmospheres for 3 0 seconds 2:09:35 in the RAMUS Prox. 2:10:13 HR=60 bpm, STDY=281/82 mmhg, SpO2=95.0 %, Resp=17 B/min, Hamilton=2 2:11:59 Delivery device removed 2:12:18 HR=56 bpm, QPCC=990/73 mmhg, SpO2=91.0 %, Resp=18 B/min, Hamilton=2 2:13:07 200 mcg NTG (IC) given in lab by Noah Lofton via Intra-coronary. Ordered by Noah Lofton. 2:13:57 Wire removed 2:14:19 HR=81 bpm, NIBP=99/62 mmhg, SpO2=94.0 %, Resp=21 B/min, Hamilton=2 2:15:10 Catheter was removed 5 mcg/min NITROGLYCERIN DRIP given in lab by Heather Duron RN via Peripheral IV. Pump/Drip Fl ow = 1.5 ml/hr 2:15:16 using D5W with a concentration of 50 mg in 250 ml. Ordered by Noah Lofton. 2:16:03 Case End (Physician broke scrub) Assessment: Final Case, HR=65 BPM, Rhythm=sr, CTKW=958/64 mmhg, Edema=None, Color=Normal, Skin = Warm, Dry Right Pulses: Post Tib=3, Femoral=3, Radial=3 2:16:14 Left Pulses: Post Tib=3, Femoral=3, Radial=3 Neurological: State=Alert, Ox3, YOU Respiration: Resp=18 B/min, SpO2=99 %, O2=2 lpm 2:16:17 HR=72 bpm, EONB=332/64 mmhg, SpO2=96 %, Resp=12 B/min, Hamilton=2 2:17:11 Catheter(s) removed without difficulty Radial Compression Device Used. 12 mLs of air placed in BAND, RADIAL COMPRESSION TR SHORT 24 2 4CM. Affected 2:18:51 hand 96 % O2 saturation. 2:18:57 HR=72 bpm, JBZF=567/59 mmhg, SpO2=96 %, Resp=12 B/min, Hamilton=2 2:19:45 No case complications noted. 2:19:47 Cine recording checked. 2:19:51 Implantable Device card placed in patient's chart. 2:19:59 A Left Heart Cath was performed. 2:20:19 HR=60 bpm, DNNZ=857/68 mmhg, SpO2=96 %, Resp=18 B/min, Hamilton=2 2:22:20 HR=74 bpm, YYWX=248/73 mmhg, Resp=21 B/min, Hamilton=2 2:24:19 HR=62 bpm, SHWW=945/93 mmhg, Resp=10 B/min, Hamilton=2 2:24:29 180 mg BRILINTA given in lab by Heather Duron, EVANS via Oral. 2:25:58 10 mL KENGREAL BOLUS given in lab by Sincere Scott, RN in Left Antecubital via Peripheral I V. Ordered by Noah Lofton. 4.005 mcg/kg/min KENGREAL DRIP given in lab by Sincere Scott RN in Left Antecubital via Periph eral IV. Pump/Drip 2:26:29 Flow = 79.3 ml/hr using NaCl .9 with a concentration of 50 mg in 250 ml. Ordered by Stephon Lofton. 2:27:17 Vitals capture stopped. 2:27:35 Patient moved to [facility] End Study - Contrast Media Used In Study Contrast Total Opened (mL) Total Used (mL) Total Wasted (mL) Omnipaque 140 140 0 End Study - Maximum Contrast Load Max Contrast Load (mL) 330.0 End Study - Radiation Exposure Fluoro Time (minutes) 7.4 End Study - Patient Disposition Complications Transferred To Telemetry Bed
[2017-12-08] MEDS: Sod Chloride 0.9% Inj 1,000 ML IV.CONT SCH ×2 (03:03→16:29)
[2017-12-08 06:45] LABS: Baso % (Auto) 0.2 % (0.0-2.0); Eos # (Auto) 0.1 th/mm3 (0.0-0.4); Eos % (Auto) 0.8 % (0.0-4.0); Hematocrit 43.7 % (39.0-51.0); Hemoglobin 14.8 gm/dL (13.0-17.0); Lymph # (Auto) 1.3 th/mm3 (1.0-4.8); Lymph % (Auto) 11.7 % (9.0-44.0); Mean Corpuscular HGB Conc 33.7 % (32.0-36.0); Mean Corpuscular Hemoglobin 31.3 pg (27.0-34.0); Mean Corpuscular Volume 92.8 fL (80.0-100.0); Mean Platelet Volume 9.5 fL (7.0-11.0); Mono # (Auto) 0.6 th/mm3 (0.0-0.9); Mono % (Auto) 5.2 % (0.0-8.0); Neut # (Auto) 9.2 th/mm3 (1.8-7.7); Neut % (Auto) 82.1 % (16.0-70.0); Platelet Count 131 th/mm3 (150-450); Red Blood Count 4.71 mil/mm3 (4.50-5.90); Red Cell Distribution Width 14.3 % (11.6-17.2); White Blood Count 11.2 th/mm3 (4.0-11.0)
[2017-12-08 07:10] LABS: Anion Gap 9 meq/L (5-15); Blood Urea Nitrogen 9 mg/dL (7-18); Calcium 7.4 mg/dL (8.5-10.1); Carbon Dioxide 23.2 meq/L (21.0-32.0); Chloride 110 meq/L (98-107); Cholesterol 174 mg/dL (120-200); Glomerular Filtration Rate Greater Than 89 mL/min (>89); Glucose,Random 104 mg/dL (74-106); Potassium 3.7 meq/L (3.5-5.1); Sodium 142 meq/L (136-145); Triglycerides 184 mg/dL (42-150)
[2017-12-08 07:22] LABS: Chol/HDL Ratio 3.88 Ratio; HDL Cholesterol 44.8 mg/dL (40.0-60.0); LDL Cholesterol,Calculated 92 mg/dL (0-99); Total Protein 6.2 g/dL (6.4-8.2)
[2017-12-08] MEDS: Insulin NovoLOG Aspart Correctional Sugar Inj SQ SCH ×4 (08:03→20:42)
[2017-12-08] MEDS ORDERED: Iohexol 350 MG/ML 50 ML Vial (for Cath Lab) IVCONTRAST ONE (08:38)
[2017-12-08] MEDS ORDERED: Iohexol 350 MG/ML 100 ML Vial (for Cath Lab) IVCONTRAST ONE (08:38)
--- NOTE | 2017-12-08 10:15 | P.PNCA ---
Subjective Interval history: No acute events Medications and Allergies Active Medications: Active Medications Al Hydroxide/Mg Hydroxide (Milk Of Magnesia Liq) 30 ml PO Q12H PRN PRN Reason: Mild Constipation Aspirin (Ecotrin) 81 mg PO DAILY [facility] Last Admin: 12/08/17 09:12 Dose: 81 mg Atorvastatin Calcium (Lipitor) 80 mg PO DAILY [facility] Last Admin: 12/08/17 09:12 Dose: 80 mg Bisacodyl (Dulcolax Supp) 10 mg RECTAL DAILY PRN PRN Reason: SEVERE CONSITIPATION Dextrose (D50w Vial) 50 ml IV.PUSH UNSCH PRN PRN Reason: PER HYPOGLYCEMIA PROTOCOL Glucagon (Glucagon Inj) 1 mg OTHER PRN PRN PRN Reason: for Hypoglycemia Protocol Nitroglycerin/Dextrose (Nitroglycerin Drip Premix) 50 mg in 250 mls @ 0 mls/hr IV.CONT TITRATE PRN; Protocol PRN Reason: Per Protocol Last Titration: 12/08/17 02:15 Dose: 5 mcg/min, 1.5 mls/hr Sodium Chloride (Ns Inj) 1,000 mls @ 100 mls/hr IV.CONT .Q10H [facility] Last Admin: 12/08/17 03:03 Dose: 100 mls/hr Insulin Aspart (Novolog Insulin Correctional Sugar Inj) 0 unit SQ ACHS [facility]; Protocol Last Admin: 12/08/17 08:03 Dose: Not Given Lactulose (Lactulose Liq) 30 ml PO DAILY PRN PRN Reason: SEVERE CONSITIPATION Sennosides (Senokot) 17.2 mg PO Q12H PRN PRN Reason: Moderate Constipation Sodium Chloride (Ns Flush) 2 ml IV.FLUSH PRN PRN PRN Reason: FLUSH AFTER USING IV ACCESS Sodium Chloride (Ns Flush) 2 ml IV.FLUSH BID [facility] Last Admin: 12/08/17 09:15 Dose: 2 ml Sodium Chloride (Ns Flush) 2 ml IV.FLUSH PRN PRN PRN Reason: FLUSH AFTER USING IV ACCESS Ticagrelor (Brilinta) 90 mg PO BID [facility] Last Admin: 12/08/17 09:12 Dose: 90 mg Allergies Allergy/AdvReac Type Severity Reaction Status Date / Time Penicillins Allergy Hives Verified 12/07/17 22:15 Home Medications Medication Instructions Recorded Confirmed Type No Known Home Medications 12/07/17 12/07/17 History Physical Exam Vital signs: Vital Signs 12/07/17 22:15 12/07/17 22:17 12/07/17 22:40 Temperature 97.6 F 98 F Pulse Rate 72 94 H Respiratory Rate 15 18 Blood Pressure 234/102 H 234/111 H Pulse Oximetry 100 100 100 12/07/17 22:52 12/07/17 23:00 12/07/17 23:01 Temperature Pulse Rate 82 75 Respiratory Rate 18 20 18 Blood Pressure 203/98 H 175/92 H Pulse Oximetry 97 100 12/07/17 23:08 12/07/17 23:11 12/07/17 23:35 Temperature Pulse Rate 65 65 Respiratory Rate 18 18 18 Blood Pressure 158/62 H 146/78 H Pulse Oximetry 100 100 12/08/17 01:28 12/08/17 03:00 12/08/17 04:00 Temperature 97 F L Pulse Rate 65 85 76 Respiratory Rate 16 18 Blood Pressure 124/70 110/76 Pulse Oximetry 98 12/08/17 05:00 12/08/17 06:00 Temperature Pulse Rate 50 L 51 L Respiratory Rate Blood Pressure Pulse Oximetry Intake & Output 12/07/17 12/08/17 12/08/17 18:59 06:59 18:59 Intake Total 240 / 240 Output Total 1150 / 1150 Balance -910 / -910 Weight 73.6 kg Intake: Oral 240 / 240 Output: Urine 1150 / 1150 Other: Weight On Admission 66.075 kg - Constitutional no acute distress - Routine HEENT Exam Head: Present: normocephalic Eye: Present: EOMI, PERRL ENT: Present: mucous membranes moist - Routine Neck Exam Absent: JVD - Routine Respiratory Exam Present: CTA bilaterally - Routine Cardiovascular Exam Present: RRR, S1, S2 - Routine Abdominal Exam Present: soft, normoactive bowel sounds - Routine Neurological Exam Present: alert, oriented X3, CN II-XII intact Results 12/09/17 05:41 12/09/17 05:41 Cardiac Enzymes 12/07/17 12/07/17 12/08/17 Range/Units 22:39 22:39 05:45 Troponin I 0.28 H Greater than 40.00 H* (0.02-0.05) ng/mL B-Natriuretic Peptide 24 (0-100) pg/mL Coagulation 12/07/17 12/07/17 Range/Units 22:39 22:39 PT 10.0 (9.8-11.6) sec APTT 29.7 (24.3-30.1) sec B-Natriuretic Peptide 24 (0-100) pg/mL Lipids 12/08/17 Range/Units 05:45 Triglycerides 184 H (42-150) mg/dL Cholesterol 174 (120-200) mg/dL HDL Cholesterol 44.8 (40.0-60.0) mg/dL Cholesterol/HDL Ratio 3.88 Ratio CBC 12/07/17 12/08/17 Range/Units 22:39 05:45 WBC 12.0 H 11.2 H (4.0-11.0) th/mm3 RBC 5.24 4.71 (4.50-5.90) mil/mm3 Hgb 16.4 14.8 (13.0-17.0) gm/dL Hct 48.3 43.7 (39.0-51.0) % Plt Count 151 131 L (150-450) th/mm3 Neut # (Auto) 9.1 H 9.2 H (1.8-7.7) th/mm3 Lymph # (Auto) 2.0 1.3 (1.0-4.8) th/mm3 [place] # (Auto) 0.7 0.6 (0.0-0.9) th/mm3 Eos # (Auto) 0.2 0.1 (0.0-0.4) th/mm3 Baso # (Auto) 0.0 0.0 (0.0-0.2) th/mm3 Comprehensive Metabolic Panel 12/07/17 12/08/17 Range/Units 22:39 05:45 Sodium 142 (136-145) meq/L Potassium 3.7 (3.5-5.1) meq/L Chloride 110 H (98-107) meq/L Carbon Dioxide 23.2 (21.0-32.0) meq/L BUN 9 (7-18) mg/dL Creatinine 0.58 L (0.60-1.30) mg/dL Calcium 8.3 L 7.4 L* D (8.5-10.1) mg/dL Total Protein 6.2 L (6.4-8.2) g/dL Intake and Output 12/07/17 12/08/17 12/08/17 22:59 06:59 14:59 Intake Total 240 / 240 Output Total 1150 / 1150 Balance -910 / -910 Intake: Oral 240 / 240 Output: Urine 1150 / 1150 Other: Weight 66.075 kg 73.6 kg Weight On Admission 66.075 kg - Imaging and Cardiology Imaging: Impressions Chest X-Ray 12/07/17 22:32 CONCLUSION: Minimal basilar atelectasis. No focal infiltrate or effusion. Assessment and Plan - Plan s/p NSTEMI -continue asa, brilinta, and statin -start bb -TTE
[2017-12-08 11:23] LABS: Hemoglobin A1c 5.7 % (4.3-6.0)
--- NOTE | 2017-12-08 15:50 | ECG ---
Date Performed: 12/07/2017 Time Performed: 23:19:44 PTAGE: 57 years EKG: SINUS BRADYCARDIA MODERATE ST DEPRESSION IN INFERIOR AND ANTEROLATERAL LEADS LATERAL ST DOTTIE VATION IN LEADS I AND AVL ABNORMAL ECG PREVIOUS TRACING : 12/07/2017 22.29 DOCTOR: Krzysztof Siddiqui Interpretating Date/Time 12/09/2017 09:39:18
--- NOTE | 2017-12-08 15:50 | ECG ---
Date Performed: 12/07/2017 Time Performed: 22:29:37 PTAGE: 57 years EKG: Sinus rhythm WITH SINUS ARRHYTHMIA POSSIBLE LEFT ATRIAL ENLARGEMENT MARKED ST ELEVATION, CONSIDER LATERAL INJURY ACUTE [place] NO PREVIOUS TRACING DOCTOR: Rafita Perez Interpretating Date/Time 12/08/2017 15:48:50
--- NOTE | 2017-12-08 19:05 | ECHRPT ---
Indication: CORONARY ATHEROSCLEROSIS CONCLUSIONS The left ventricular systolic function is normal with an estimated ejection fraction in the range of 55-60%. Left ventricular diastolic function parameters are normal. Trace mitral valve regurgitation. There is trace tricuspid valve regurgitation. BP: / HR: Rhythm: Sinus MEASUREMENTS (Male / Female) Normal Values Technical Quality:Fair 2D ECHO LV Diastolic Diameter PLAX 5.9 cm 4.2 - 5.9 / 3.9 - 5.3 cm LV Systolic Diameter PLAX 4.4 cm IVS Diastolic Thickness 0.7 cm 0.6 - 1.0 / 0.6 - 0.9 cm LVPW Diastolic Thickness 0.8 cm 0.6 - 1.0 / 0.6 - 0.9 cm LV Relative Wall Thickness 0.3 RV Internal Dim ED PLAX 2.1 cm LVOT Diameter 1.9 cm Aortic Root Diameter 2.9 cm LA Systolic Diameter LX 3.3 cm 3.0 - 4.0 / 2.7 - 3.8 cm M-MODE AV Cusp Separation MM 2.2 cm DOPPLER AV Peak Velocity 129.0 cm/s AV Peak Gradient 6.7 mmHg LVOT Peak Velocity 104.0 cm/s LVOT Peak Gradient 4.3 mmHg LVOT Velocity Time Integral 24.7 cm AV Area Cont Eq pk 2.3 cm Mitral E Point Velocity 94.8 cm/s Mitral A Point Velocity 71.6 cm/s Mitral E to A Ratio 1.3 LV E' Lateral Velocity 10.7 cm/s Mitral E to LV E' Lateral Ratio 8.9 LV E' Septal Velocity 8.0 cm/s Mitral E to LV E' Septal Ratio 11.9 TR Peak Velocity 103.0 cm/s TR Peak Gradient 4.2 mmHg PV Peak Velocity 72.9 cm/s PV Peak Gradient 2.1 mmHg FINDINGS LEFT VENTRICLE The left ventricular systolic function is normal with an estimated ejection fraction in the range of 55-60%. Wall thickness is normal. Normal left ventricular size. Left ventricular diastolic function parameters are normal. RIGHT VENTRICLE The right ventricular size is normal. The right ventricular systoilc function is normal. LEFT ATRIUM The left atrial size is normal. RIGHT ATRIUM The right atrial size is normal. ATRIAL SEPTUM No atrial level shunt is demonstrated by color flow Doppler interrogation. 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 MITRAL VALVE Structurally normal mitral valve. No mitral valve stenosis. Trace mitral valve regurgitation AORTIC VALVE Trileaflet aortic valve. No aortic valve stenosis or regurgitation. TRICUSPID VALVE Grossly normal There is trace tricuspid valve regurgitation. PULMONARY VALVE No pulmonary valve regurgitation or stenosis. VESSELS The inferior vena cava is dilated. PERICARDIUM There is no pericardial effusion. Chetan Hope DO (Electronically Signed) Final Date:08 December 2017 19:04
[2017-12-09 06:22] LABS: Baso % (Auto) 0.3 % (0.0-2.0); Eos # (Auto) 0.2 th/mm3 (0.0-0.4); Hematocrit 45.2 % (39.0-51.0); Hemoglobin 15.5 gm/dL (13.0-17.0); Lymph # (Auto) 1.6 th/mm3 (1.0-4.8); Mean Corpuscular HGB Conc 34.3 % (32.0-36.0); Mean Corpuscular Hemoglobin 31.9 pg (27.0-34.0); Mean Platelet Volume 9.6 fL (7.0-11.0); Mono # (Auto) 0.6 th/mm3 (0.0-0.9); Mono % (Auto) 6.6 % (0.0-8.0); Neut % (Auto) 74.1 % (16.0-70.0); Platelet Count 142 th/mm3 (150-450); Red Blood Count 4.86 mil/mm3 (4.50-5.90); Red Cell Distribution Width 14.3 % (11.6-17.2); White Blood Count 9.4 th/mm3 (4.0-11.0)
[2017-12-09 06:44] LABS: Albumin 3.6 g/dL (3.4-5.0); Anion Gap 8 meq/L (5-15); Aspartate Aminotransferase 120 U/L (15-37); Blood Urea Nitrogen 9 mg/dL (7-18); Calcium 8.1 mg/dL (8.5-10.1); Carbon Dioxide 25.1 meq/L (21.0-32.0); Chloride 109 meq/L (98-107); Glomerular Filtration Rate Greater Than 89 mL/min (>89); Glucose,Random 118 mg/dL (74-106); Potassium 3.7 meq/L (3.5-5.1); Sodium 142 meq/L (136-145)
[2017-12-09 06:46] LABS: Alanine Aminotransferase 61 U/L (12-78)
[2017-12-09 06:48] LABS: Alkaline Phosphatase 64 U/L (45-117); Total Protein 6.7 g/dL (6.4-8.2)
[2017-12-09 09:36] VITALS: BP 145/88; RESP 20; TEMP 98.3
[2017-12-09] MEDS: Insulin NovoLOG Aspart Correctional Sugar Inj SQ SCH (10:20)
--- NOTE | 2017-12-09 11:59 | P.DS ---
Date of admission: 12/08/17 00:21 Primary care physician: UNKNOWN Brief History from admission: 57-year-old male with a history of prediabetes, diet controlled, [id number] history of smoking, who presents with acute onset of progressively worsening dull chest pain radiating to jaw, as well as left arm. Patient was then admitted for NSTEMI. DS: Medications - Discharge Medications Prescriptions: aspirin 81 mg PO DAILY #30 tab atorvastatin 80 mg PO DAILY #30 tab carvedilol [Coreg] 3.125 mg PO BID #60 tab ticagrelor [Brilinta] 90 mg PO BID #60 tab DS: Summary Hospital Course: This patient is a 57-year-old male with a diagnosis of prediabetes controlled with diet. He has a [id number] smoking history who presented to the emergency department with acute onset of dull left-sided chest pain with radiation to the jaw and left upper extremity. He was evaluated in the emergency department and was subsequently admitted for non-ST segment elevation [place]. 1. Non-ST segment elevation [place] The patient was evaluated in the emergency department. EKG showed 2 mm elevation in 1, aVL, ST segment depressions in the lateral leads. Troponin was elevated greater than 40. He was given aspirin, statin, beta- kimber, and patient was started on heparin drip. Cardiology was consulted to evaluate the patient and recommended that the patient undergo cardiac catheterization. Patient underwent cardiac catheterization and a stent was placed in the ramus x1. Patient was monitored on telemetry in the CIC unit. He is now chest pain-free and is ambulating without any complaints of chest pain or shortness of breath. He will be discharged home. The patient lives in [place] and will follow up with his primary care physician in [place] in the next 1 week. The patient was advised to take his medications and the importance of taking these medications were discussed in detail with the patient. He will be discharged on aspirin, statin, beta-kimber, Brilinta. TTE from yesterday shows an ejection fraction of 55%. 2. Tobacco smoking Patient was advised to avoid tobacco smoking. 3. Prediabetes Patient was counseled on diabetes and to begin exercising after the next couple of weeks. - Time Spent with Patient Total time spent providing and/or coordinating discharge services: Greater than 30 minutes - Quality: VTE Deep Vein Thrombosis/Pulmonary Embolism Present on Admission: No Exam Vital signs: Vital Signs 10/30/18 12:00 12/08/17 13:00 12/08/17 14:00 Temperature 97.5 F L Pulse Rate 52 L 68 76 Respiratory Rate 16 Blood Pressure 144/93 H Pulse Oximetry 98 12/08/17 15:00 12/08/17 16:00 12/08/17 17:00 Temperature 97.6 F Pulse Rate 52 L 48 L 50 L Respiratory Rate 16 Blood Pressure 148/78 H Pulse Oximetry 97 12/08/17 18:00 12/08/17 19:00 12/08/17 20:00 Temperature 98.4 F Pulse Rate 64 53 L 58 L Respiratory Rate 18 Blood Pressure 138/80 Pulse Oximetry 97 12/08/17 20:25 12/08/17 23:00 12/09/17 00:00 Temperature Pulse Rate 61 61 Respiratory Rate 18 Blood Pressure Pulse Oximetry 97 12/09/17 01:00 12/09/17 02:00 12/09/17 03:00 Temperature Pulse Rate 56 L 76 56 L Respiratory Rate Blood Pressure Pulse Oximetry 12/09/17 04:00 12/09/17 05:00 12/09/17 06:00 Temperature 97.9 F Pulse Rate 72 56 L 64 Respiratory Rate 18 Blood Pressure 144/92 H Pulse Oximetry 97 12/09/17 08:00 12/09/17 09:00 12/09/17 10:00 Temperature 98.3 F Pulse Rate 80 63 63 Respiratory Rate 20 Blood Pressure 145/88 H Pulse Oximetry 97 Intake & Output 12/08/17 12/09/17 12/09/17 18:59 06:59 18:59 Intake Total 1650 / 1650 Balance 1650 / 1650 Weight 71 kg Intake: IV 1650 / 1650 Nitroglycerin Drip Premix 50 mg 250 / 250 In 250 ml @ Per Protocol IV. CONT TITRATE PRN Rx#:[id number] NS Inj 1,000 ML @ 100 mls/hr IV 400 / 400 .CONT .Q10H SOURAV Rx#:[id number] Other: # Voids 2 Narrative: General patient in no acute distress HEENT extraocular movements are intact, clear oropharyngeal mucosa, no JVD Cardiovascular S1-S2 audible, RRR, no murmurs rubs or gallops Respiratory clear to auscultation bilaterally Abdomen soft, nontender, nondistended, normal bowel sounds Extremities no edema 2+ distal pulses in bilateral upper and lower extremities Neuro cranial nerves II through XII intact Results Procedures completed during hospitalization: Cardiac catheterization with stent placement Labs on day of discharge: Labs from last 24 hours 12/09/17 12/09/17 12/09/17 07:20 05:41 05:41 WBC 9.4 RBC 4.86 Hgb 15.5 Hct 45.2 MCV 93.0 MCH 31.9 MCHC 34.3 RDW 14.3 Plt Count 142 L MPV 9.6 Neut % (Auto) 74.1 H Lymph % (Auto) 17.0 [place] % (Auto) 6.6 Eos % (Auto) 2.0 Baso % (Auto) 0.3 Neut # (Auto) 7.0 Lymph # (Auto) 1.6 [place] # (Auto) 0.6 Eos # (Auto) 0.2 Baso # (Auto) 0.0 WBC Differential . Differential Comment Auto diff final Sodium 142 Potassium 3.7 Chloride 109 H Carbon Dioxide 25.1 Anion Gap 8 BUN 9 Creatinine 0.70 Estimated GFR Greater than 89 POC Glucose 129 H Random Glucose 118 H Calcium 8.1 L Total Bilirubin 1.1 H AST 120 H ALT 61 Alkaline Phosphatase 64 Total Protein 6.7 Albumin 3.6 12/08/17 12/08/17 12/08/17 20:25 17:10 12:54 WBC RBC Hgb Hct MCV MCH MCHC RDW Plt Count MPV Neut % (Auto) Lymph % (Auto) [place] % (Auto) Eos % (Auto) Baso % (Auto) Neut # (Auto) Lymph # (Auto) [place] # (Auto) Eos # (Auto) Baso # (Auto) WBC Differential Differential Comment Sodium Potassium Chloride Carbon Dioxide Anion Gap BUN Creatinine Estimated GFR POC Glucose 136 H 121 H 188 H Random Glucose Calcium Total Bilirubin AST ALT Alkaline Phosphatase Total Protein Albumin - Impressions ITS Impressions Chest X-Ray 12/07/17 22:32 CONCLUSION: Minimal basilar atelectasis. No focal infiltrate or effusion. Discharge Plan - Discharge Disposition Patient Disposition: 01 Discharge Home - Discharge Condition Condition: Good - Discharge Order Discharge Orders: Discharge Order (Routine); Ordered 12/09/17 Ordered By: Sharon Dominguez - Physicians Team Primary Care Provider: UNKNOWN, Attending Provider: Sharon Dominguez Other Providers: Jacob Huynh MD
[2017-12-09 12:31] VITALS: PULSE 60
--- NOTE | 2017-12-09 15:01 | ECG ---
Date Performed: 12/08/2017 Time Performed: 14:20:36 PTAGE: 57 years EKG: Sinus rhythm Lateral ST-T changes are nonspecific Borderline ECG PREVIOUS TRACING : 12/08/2017 12.11 DOCTOR: Krzysztof Siddiqui Interpretating Date/Time 12/09/2017 14:58:24
--- NOTE | 2017-12-09 15:04 | ECG ---
Date Performed: 12/08/2017 Time Performed: 12:11:10 PTAGE: 57 years EKG: Sinus bradycardia Prolonged QT interval Inferior ST changes are nonspecific Borderline ECG PREVIOUS TRACING : 12/07/2017 23.19 DOCTOR: Krzysztof Siddiqui Interpretating Date/Time 12/09/2017 15:02:48
[2017-12-10 01:19] VITALS: O2SAT 99
--- NOTE | 2017-12-14 07:01 | P.CATH ---
- Cardiac Catheterization Procedure Date: 12/08/17 Procedure Note:: Preprocedure Dx: Acute Myocardial Infarction Postprocedure Dx: Successful PCI to the Ramus using a 2.0 x 15 Resolute [place] VAISHNAVI Procedures Performed: Coronary Angiography via the right radial Indications: In brief Mr. Fuentes presented with acute onset of chest pain, please see H and P for further details. 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 He was sterilely prepped and draped in a usual fashion.1% lidocaine solution was used for anesthesia and we placed a 6F sheath into the right radial artery. We then used a JR4 to engage the RCA. This was exchanged for a JL 3.5 to engage the left main. Images obtained after contrast dye injection. FINDINGS: Right Coronary Artery: Dominant vessel which bifurcates into the SHA and PDA. There is mild- moderate disease in the mid RCA. There is moderate disease in the PDA section. Left main: Moderate caliber vessel which trifurcates into a left anterior descending, a left circumflex, and a ramus. This vessel has minimal luminal irregularities. Ramus: Small vessel which appears to be the culprit vessel for the acute [place]. Left Anterior Descending: Moderate caliber vessel that courses distally to wrap around the apex giving rise to multiple diagonal branches. There is moderate disease in the mid LAD. Left Circumflex: Moderate caliber vessel that courses distally within the AV grove, giving rise to multiple OM. There are mild -moderate luminal irregularities. Interventional Summary: We then proceeded with percutaneous coronary intervention. Using an XB 3.0 guide , we engaged the Left Main coronary artery. We then used a Runthrough wire to wire down the length of the vessel. The culprit was a small ramus artery. We then pre-dilated with a 2.0 compliant balloon. Subsequently we placed a 2.0 x 15 Resolute [place] VAISHNAVI to the Ramus. We had an excellent result with SHRUTI 3 flow. There were no immediate complications.
== END 2017-12-09 13:00 | disposition home or self-care (01) ==
LOC: NEPE 22:07 → NEDA 12-08 00:21 → HCIS 12-08 02:50
PROVIDERS: ADMIT Hospitalist; ATTEND Hospitalist